=== PATIENT | male | born 1970 | race Caucasian/White ===

== ENCOUNTER 2020-02-11 13:13 | Emergency (ER) | payer OTHER, SELFPAY ==
[2020-02-11 13:22] VITALS: BP 155/83; PULSE 72; RESP 18; TEMP 36.2; O2SAT 98; BMI 31.3
[2020-02-11 14:07] LABS: Bacteria Urine None Seen
[2020-02-11 14:10] LABS: Appearance Urine UA CLEAR; Bilirubin Urine UA NEGATIVE (NEGATIVE); Color Urine UA YELLOW; Glucose Urine UA 2+ g/dL (Negative); Ketones Urine UA 1+ (NEGATIVE); Leukocyte Esterase Urine UA NEGATIVE (NEGATIVE); Nitrite Urine UA NEGATIVE (Negative); Occult Blood Urine UA 3+ (Negative); Protein Urine UA 1+ (Negative); Urobilinogen Urine UA 0.2 E.U./dL (0.2); pH Urine UA 5.5 (4.5-8.0)
[2020-02-11 14:25] LABS: RBC Urine 5-10/HPF (0-5/HPF); Squamous Epithelial Cell Urine 0-1 /HPF (0-5/HPF); WBC Urine 1-5/HPF (0-5/HPF)
[2020-02-11 14:26] LABS: Culture Indicated Urine Cult Not Indicated
[2020-02-11 14:37] LABS: Add Manual Diff / Slide Review NO; Basophils Absolute Auto 0 /uL (0-100); Basophils Percent Auto 0.3 % (0-2); Eosinophils Absolute Auto 0 /uL (0-450); Eosinophils Percent Auto 0.1 % (2-4); Hematocrit 46.3 % (41-53); Hemoglobin 16.7 g/dL (13.5-17.5); Lymphocytes Absolute Auto 2100 /uL (1100-4500); Lymphocytes Percent Auto 19.2 % (25-40); Mean Corpuscular Hemoglobin 33.8 PG (26-34); Mean Corpuscular Volume 93.7 fL (80-100); Monocytes Absolute Auto 700 /uL (0-900); Monocytes Percent Auto 6.1 % (3-14); Neutrophils Absolute Auto 8000 /uL (1500-7000); Neutrophils Percent Auto 74.3 % (50-75); Platelet Count 159 X10^3/uL (150-400); Red Blood Cell Count 4.94 X10^6/uL (4.5-5.9); White Blood Cell Count 10.7 X10^3/uL (4.5-11.0)
[2020-02-11 14:46] LABS: Alanine Aminotransferase 52 IU/L (<50); Albumin 4.6 g/dL (3.5-5.0); Albumin Globulin Ratio 1.4 (1.0-2.8); Alkaline Phosphatase 94 U/L (38-126); Aspartate Aminotransferase 36 IU/L (17-59); Bilirubin Total 1.3 mg/dL (0.2-1.3); Blood Urea Nitrogen 17 mg/dL (9-20); Calcium 9.3 mg/dL (8.4-10.2); Carbon Dioxide 26 mmol/L (22-32); Chloride 103 mmol/L (98-107); Estimated Glomerular Filt Rate > 60.0 mL/min (>60); Globulin 3.4 g/dL (1.7-4.1); Glucose 261 mg/dL (70-100); HEMOLYSIS < 15 (0-50); Lipase 56 U/L (23-300); Potassium 4.1 mmol/L (3.4-5.1); Sodium 139 mmol/L (137-145)
--- NOTE | 2020-02-11 14:46 | DI.CT.S_ITS ---
PROCEDURE: CT KIDNEY URETER BLADDER (KUB) INDICATIONS: right side, RLQ pain with n/v, hx of kidney stone TECHNIQUE: Noncontrast 5 mm thick sections acquired from the diaphragms to the symphysis. 5 mm thick coronal and sagittal reformats were then performed. For radiation dose reduction, the following was used: automated exposure control, adjustment of mA and/or kV according to patient size. COMPARISON: [facility], CT, KIDNEY/ URETER/BLADDER, 06/09/2016, 14:46. FINDINGS: Image quality: Excellent. Lung bases: Lung bases are clear. Heart size is normal. A small hiatal hernia is incidentally noted. Urinary system: Within the distal right ureter, there are 2 tiny stone seen immediately adjacent to 1 another, each measuring approximately 2 mm. There is mild right-sided hydronephrosis and hydroureter. Mild right-sided perinephric fat stranding can be seen. The previously seen distal left ureteral stone has resolved. Within the left kidney, there is a nonobstructing kidney stone seen inferiorly, as on series 2, image 45, measuring 6 mm. Both kidneys are normal in size. Bladder wall thickness is normal; no calcified bladder stones. Other solid organs: Liver is normal in size. Diffuse fatty liver infiltration is noted. Gallbladder wall is not thickened. Pancreas is normal in contours. Spleen is normal in size. No adrenal nodules. Peritoneum and bowel: Unenhanced bowel loops demonstrate normal wall thickness and caliber. No free fluid or air. A normal appendix is incidentally noted. Distal colonic diverticulosis is seen, without findings of active diverticulitis. Nodes and vessels: No retroperitoneal or mesenteric adenopathy by size criteria. Aorta and inferior vena cava are normal in caliber. Abdominal wall: A mild periumbilical hernia is seen, containing fat. Pelvis: No free pelvic fluid. No inguinal adenopathy. Bilateral fat containing inguinal hernias are seen. Prostate calcifications are seen. Bones: No suspicious bony lesions. No vertebral body compression fractures. IMPRESSION: Within the distal right ureter, there are 2 small stone seen immediately adjacent to one another, each measuring approximately 2 mm. There is associated right-sided hydroureter, hydronephrosis, and perinephric fat stranding. 6 mm nonobstructing left-sided kidney stone. Incidental note is made of: Small hiatal hernia Diffuse fatty liver infiltration Small fat containing periumbilical hernia Bilateral fat containing inguinal hernias Normal appendix Dictated by: Shan Larry M.D. on 02/11/2020 at 14:09 Approved by: Shan Larry M.D. on 02/11/2020 at 14:15
[2020-02-11 14:59] VITALS: PULSE 82; O2SAT 100
[2020-02-11 15:00] VITALS: BP 127/83; PULSE 69; O2SAT 99
[2020-02-11] MEDS: SODIUM CHLORIDE 0.9% 1,000 ML 150 ML IV (15:02)
[2020-02-11 15:30] VITALS: BP 116/66; PULSE 73; O2SAT 97
--- NOTE | 2020-02-11 18:31 | ED.MALEGU ---
HPI - Male Genitourinary <ERNST Tinsley - Last Filed: 02/11/20 19:05> General Chief complaint: Urogenital-Male Stated complaint: kidney stones Time Seen by Provider: 02/11/20 14:28 Source: patient Mode of arrival: Ambulatory Limitations: no limitations History of Present Illness HPI Narrative: This is a 49-year-old male, nonsmoker, who has history of kidney stone in the right-sided about 3 years ago presents to ED with significant other with chief complain of sudden onset of right side pain when he woke up this morning at 7:00 a.m.. Patient reports nausea and vomiting after the pain started. Patient denies fever, chills, feeling of bladder fullness, urinary symptoms including urgency, frequency, dysuria, or hematuria. Patient was able to pass stone 3 years ago without surgeries. Patient had noticed some back pain in the right-sided last 2 months but this morning he noticed severe pain on the right side. Patient reports the pain make him wants to move around and pressure to perineum but was unable to have bowel movements. Reports pain is well managed after he received a few medications by [facility] before coming into ED. Patient is from [facility] and had received IM injections of Toradol, Dilaudid 1mg x2 and sublingual Zofran before arriving to ED. Related Data Home Medications Medication Instructions Recorded Confirmed omeprazole 20 mg PO QDAY #0 06/09/16 Previous Rx's Medication Instructions Recorded hydrocodone-acetaminophen [[place]] 1 - 2 tab PO Q6H PRN #20 tab 06/09/16 hydrocodone-acetaminophen [[place]] 1 tab PO Q8H PRN #14 tab 02/11/20 ondansetron 4 mg PO Q8-12H PRN #10 tab 02/11/20 tamsulosin [Flomax] 0.4 mg PO BEDTIME #14 cap 02/11/20 Allergies Allergy/AdvReac Type Severity Reaction Status Date / Time No Known Drug Allergies Allergy Verified 02/11/20 14:07 Review of Systems <ERNST Tinsley - Last Filed: 02/11/20 19:05> Review of Systems Narrative: General: Denies fever, chills, fatigue, malaise, sweats. HEENT: Denies sinus pain, ear pain, sore throat, difficulty swallowing, dizziness. Respiratory: Denies dyspnea, cough, wheezing, hemoptysis, sputum. Cardiovascular: Denies chest pain, palpitations, orthopnea, edema. Gastrointestinal: Denies nausea, vomiting, abdominal pain, diarrhea, constipation, melena. : see HPI Musculoskeletal: See HPI Skin: Denies rash, skin lesions, or other. Neurologic: Denies weakness, headache, numbness, change in speech, confusion, seizures, incoordination. Psychiatric: No concerning psychosocial issues. 12-point review of systems is negative except for those stated above. Patient History <ERNST Tinsley - Last Filed: 02/11/20 19:05> Medical History GERD (gastroesophageal reflux disease) (Acute) Social History Smoking Status: Never smoker Smoking Status: Never smoker Substance Use Type: does not use Exam <ERNST Tinsley - Last Filed: 02/11/20 19:05> Narrative Exam Narrative: GEN: Alert, oriented x 3, well appearing and nourished, and in no acute distress. Head: Normal cephalic, atraumatic. No scalp or temporal tenderness, palpable mass or rash. EYES: Pupils are equal, round, and reactive to light and accommodation. Extraocular muscles are intact bilaterally. There is no subconjunctival hemorrhage, exudate and sclera non-icteric. ENT: Hearing grossly intact. Nose without bleeding, purulent discharge or deviation. Mucous membrane moist, no mucosal lesion. Throat without erythema, tonsillar hypertrophy or exudate. Uvula in midline, airway patent. Neck: Trachea in midline. No JVD, non-tender without lymphadenopathy. No masses or thyroid megaly. Supple, non-tender and no meningeal signs. CARDIAC: Normal regular rate and rhythm without murmurs, gallops, or rubs. No chest wall tenderness. No peripheral edema, cyanosis or pallor. Capillary refill is less than 2 seconds. RESPIRATORY: Lungs are clear to auscultate bilaterally. No cough, wheezes, rales, or rhonchi. No stridor, respiratory distress, increase work of breathing, or accessary muscle used. ABD: Abdomen soft, nontender and non-distended. No guarding or rebound tenderness to palpate. Bowel sounds are normal in all 4 quadrants. There is no palpable masses or organomegaly. EXT: Full painless ROM of all extremities with no loss of sensation, strength, effusion or edema. SKIN: Warm, dry, normal color for patient. No erythema, lesions or rash over visible areas. BACK: Nontender without deformity or crepitance. No flank tenderness. NEUROLOGICAL: Alert and oriented to place, time and person. Sensation and motor function intact bilaterally. No facial droops, dysphasia. PSYCHIATRIC: Good judgement and reason, without hallucinations, abnormal affect or abnormal behaviors during the examination. Initial Vital Signs Initial Vital Signs: Vital Signs Temperature 97.1 F L 02/11/20 13:22 Pulse Rate 72 02/11/20 13:22 Respiratory Rate 18 02/11/20 13:22 Blood Pressure 155/83 H 02/11/20 13:22 Pulse Oximetry 98 02/11/20 13:22 <Estela Martin DO - Last Filed: 02/12/20 07:38> Initial Vital Signs Initial Vital Signs: Vital Signs Temperature 97.1 F L 02/11/20 13:22 Pulse Rate 72 02/11/20 13:22 Respiratory Rate 18 02/11/20 13:22 Blood Pressure 155/83 H 02/11/20 13:22 Pulse Oximetry 98 02/11/20 13:22 Scores <[facility] Last Filed: 02/11/20 19:05> GCS Merlin coma scale eye opening: Spontaneous Warren coma scale verbal response: Orientated Merlin coma scale motor response: Obey commands Warren coma scale total score: 15 Course <Gadiel CruzANGELINA AgostoDignity [facility] Last Filed: 02/11/20 19:05> Orders Ordered: Discontinued Medications Sodium Chloride (Normal Saline 0.9%) 1,000 mls @ 150 mls/hr IV CONT CRISPIN Last Infusion: 02/11/20 16:07 Dose: 0 mls/hr Documented by: Admin: 02/11/20 15:02 Dose: 150 mls/hr Documented by: SHAZIA Vital Signs Vital signs: Vital Signs - 8 hr 02/11/20 13:22 02/11/20 14:59 02/11/20 15:00 Temperature 97.1 F L Pulse Rate 72 82 69 Respiratory Rate 18 Blood Pressure 155/83 H 127/83 Pulse Oximetry 98 100 99 02/11/20 15:30 Temperature Pulse Rate 73 Respiratory Rate Blood Pressure 116/66 Pulse Oximetry 97 <Estela Martin DO - Last Filed: 02/12/20 07:38> Orders Ordered: Discontinued Medications Sodium Chloride (Normal Saline 0.9%) 1,000 mls @ 150 mls/hr IV CONT CRISPIN Last Infusion: 02/11/20 16:07 Dose: 0 mls/hr Documented by: Admin: 02/11/20 15:02 Dose: 150 mls/hr Documented by: SHAZIA Vital Signs Vital signs: Vital Signs - 8 hr 02/11/20 13:22 02/11/20 14:59 02/11/20 15:00 Temperature 97.1 F L Pulse Rate 72 82 69 Respiratory Rate 18 Blood Pressure 155/83 H 127/83 Pulse Oximetry 98 100 99 02/11/20 15:30 Temperature Pulse Rate 73 Respiratory Rate Blood Pressure 116/66 Pulse Oximetry 97 MDM - Male Genitourinary <ERNST Tinsley - Last Filed: 02/11/20 19:05> Differential Diagnosis Differential diagnosis: Likely other (Kidney stone, infection, UTI, hydronephrosis, obstructing stone, appendicitis) Medical Records Attestation: I reviewed the patient's medical records. Lab Data Attestation: I reviewed the patient's lab results. Result diagrams: 02/11/20 14:22 02/11/20 14:22 Labs: Lab Results 02/11/20 02/11/20 02/11/20 Range/Units 14:00 14:22 14:22 WBC 10.7 (4.5-11.0) X10^3/uL RBC 4.94 (4.5-5.9) X10^6/uL Hgb 16.7 (13.5-17.5) g/dL Hct 46.3 (41-53) % MCV 93.7 (80-100) fL MCH 33.8 (26-34) PG MCHC 36.0 (30-36) % RDW 13.0 (11.6-14.8) % Plt Count 159 (150-400) X10^3/uL Neut % (Auto) 74.3 (50-75) % Lymph % (Auto) 19.2 L (25-40) % Oliver % (Auto) 6.1 (3-14) % Eos % (Auto) 0.1 L (2-4) % Baso % (Auto) 0.3 (0-2) % Neut # (Auto) 8000 H (0787-0971) /uL Lymph # (Auto) 2100 (1645-6537) /uL Oliver # (Auto) 700 (0-900) /uL Eos # (Auto) 0 (0-450) /uL Baso # (Auto) 0 (0-100) /uL Sodium 139 (137-145) mmol/L Potassium 4.1 (3.4-5.1) mmol/L Chloride 103 (98-107) mmol/L Carbon Dioxide 26 (22-32) mmol/L BUN 17 (9-20) mg/dL Creatinine 0.81 (0.66-1.25) mg/dL Estimated GFR > 60.0 (>60) mL/min BUN/Creatinine Ratio 21.0 (6-22) Glucose 261 H (70-100) mg/dL Calcium 9.3 (8.4-10.2) mg/dL Total Bilirubin 1.3 (0.2-1.3) mg/dL AST 36 (17-59) IU/L ALT 52 H (<50) IU/L Alkaline Phosphatase 94 (38-126) U/L Total Protein 8.0 (6.3-8.2) g/dL Albumin 4.6 (3.5-5.0) g/dL Globulin 3.4 (1.7-4.1) g/dL Albumin/Globulin Ratio 1.4 (1.0-2.8) Lipase 56 (23-300) U/L Urine Color Yellow Urine Appearance Clear Urine pH 5.5 (4.5-8.0) Ur Specific [place] 1.020 (1.000-1.035) Urine Protein 1+ H (Negative) Urine Glucose (UA) 2+ H (Negative) g/dL Urine Ketones 1+ H (NEGATIVE) Urine Occult Blood 3+ H (Negative) Urine Nitrate Negative (Negative) Urine Bilirubin Negative (NEGATIVE) Urine Urobilinogen 0.2 (0.2) E.U./dL Ur Leukocyte Esterase Negative (NEGATIVE) Urine RBC 5-10/hpf H (0-5/HPF) Urine WBC 1-5/hpf (0-5/HPF) Ur Squamous Epith Cells 0-1 /hpf (0-5/HPF) Urine Bacteria None seen (None) Urine Yeast 5-10/hpf H (None) Ur Culture Indicated? Cult not indicated Imaging Data CT-KUB: Radiologist's Impression: [address] [address] [address] Scan Report Signed Patient: Torres FerrariMR#: [id number] : 1970Acct:[id number] Age/Sex: 49 / MDate of Service: 02/11/20 Loc: ED Accession Number: [id number] Procedure: CT kidney ureter bladder (KUB) Ordering Provider: Gadiel Hart PROCEDURE: CT KIDNEY URETER BLADDER (KUB) INDICATIONS: right side, RLQ pain with n/v, hx of kidney stone TECHNIQUE: Noncontrast 5 mm thick sections acquired from the diaphragms to the symphysis. 5 mm thick coronal and sagittal reformats were then performed. For radiation dose reduction, the following was used: automated exposure control, adjustment of mA and/or kV according to patient size. COMPARISON: [facility], CT, KIDNEY/ URETER/BLADDER, 06/09/2016, 14:46. FINDINGS: Image quality: Excellent. Lung bases: Lung bases are clear. Heart size is normal. A small hiatal hernia is incidentally noted. Urinary system: Within the distal right ureter, there are 2 tiny stone seen immediately adjacent to 1 another, each measuring approximately 2 mm. There is mild right-sided hydronephrosis and hydroureter. Mild right-sided perinephric fat stranding can be seen. The previously seen distal left ureteral stone has resolved. Within the left kidney, there is a nonobstructing kidney stone seen inferiorly, as on series 2, image 45, measuring 6 mm. Both kidneys are normal in size. Bladder wall thickness is normal; no calcified bladder stones. Other solid organs: Liver is normal in size. Diffuse fatty liver infiltration is noted. Gallbladder wall is not thickened. Pancreas is normal in contours. Spleen is normal in size. No adrenal nodules. Peritoneum and bowel: Unenhanced bowel loops demonstrate normal wall thickness and caliber. No free fluid or air. A normal appendix is incidentally noted. Distal colonic diverticulosis is seen, without findings of active diverticulitis. Nodes and vessels: No retroperitoneal or mesenteric adenopathy by size criteria. Aorta and inferior vena cava are normal in caliber. Abdominal wall: A mild periumbilical hernia is seen, containing fat. Pelvis: No free pelvic fluid. No inguinal adenopathy. Bilateral fat containing inguinal hernias are seen. Prostate calcifications are seen. Bones: No suspicious bony lesions. No vertebral body compression fractures. IMPRESSION: Within the distal right ureter, there are 2 small stone seen immediately adjacent to one another, each measuring approximately 2 mm. There is associated right-sided hydroureter, hydronephrosis, and perinephric fat stranding. 6 mm nonobstructing left-sided kidney stone. Incidental note is made of: Small hiatal hernia Diffuse fatty liver infiltration Small fat containing periumbilical hernia Bilateral fat containing inguinal hernias Normal appendix Dictated by: Shan Larry M.D. on 02/11/2020 at 14:09 Approved by: Shan Larry M.D. on 02/11/2020 at 14:15 [facility] Narrative Medical decision making narrative: This is a 49-year-old male who has history of kidney stone in the right side presents to ED with acute onset of right side and right lower quadrant pain with nausea and vomiting when he woke up this morning at 7:00 a.m.. Patient's states feels like kidney stone when he had it about 3 years ago. Patient denies fever, chills, urinary distension, or urinary symptoms. Consider not rescanning patient patient was able to pass stone without surgery 3 years ago but given patient [place] a living [place] and not having urologist currently, CT of KUB was ordered and obtained to verify with the patient has kidney stone versus appendicitis and the size of stone. No leukocytosis. Normal kidney function test. Urine test was negative for infection but showed 3+ blood, protein, glucose. Chemistry tests showed elevated glucose of 261 with very mildly elevated ALT of 52. CT KUB showed 2 small 2 mm stones in distal right ureter with associated right-sided hydroureter and hydronephrosis and Carlota phrenic fat stranding. There is another nonobstructing left-sided kidney stone measured in 6 mm and patient is asymptomatic on left flank or abdomen. Appendix was normal. Incidental findings of small hiatal hernia, that fused fatty liver infiltration, fat containing periumbilical and bilateral inguinal hernia. Patient was comfortable in ED and not requiring any additional medications. Patient was discharged to home with [place], Zofran as needed and Flomax daily for next couple of weeks. Advised to follow up with primary care physician and urologist. Strict Return precautions discussed including signs and symptoms for infection but on limited to with patient and he and spouse verbalized understanding in agreement with treatment plan. <Estela Martin, DO - Last Filed: 02/12/20 07:38> Lab Data Labs: Lab Results 02/11/20 02/11/20 02/11/20 Range/Units 14:00 14:22 14:22 WBC 10.7 (4.5-11.0) X10^3/uL RBC 4.94 (4.5-5.9) X10^6/uL Hgb 16.7 (13.5-17.5) g/dL Hct 46.3 (41-53) % MCV 93.7 (80-100) fL MCH 33.8 (26-34) PG MCHC 36.0 (30-36) % RDW 13.0 (11.6-14.8) % Plt Count 159 (150-400) X10^3/uL Neut % (Auto) 74.3 (50-75) % Lymph % (Auto) 19.2 L (25-40) % Oliver % (Auto) 6.1 (3-14) % Eos % (Auto) 0.1 L (2-4) % Baso % (Auto) 0.3 (0-2) % Neut # (Auto) 8000 H (0773-6095) /uL Lymph # (Auto) 2100 (4332-5647) /uL Oliver # (Auto) 700 (0-900) /uL Eos # (Auto) 0 (0-450) /uL Baso # (Auto) 0 (0-100) /uL Sodium 139 (137-145) mmol/L Potassium 4.1 (3.4-5.1) mmol/L Chloride 103 (98-107) mmol/L Carbon Dioxide 26 (22-32) mmol/L BUN 17 (9-20) mg/dL Creatinine 0.81 (0.66-1.25) mg/dL Estimated GFR > 60.0 (>60) mL/min BUN/Creatinine Ratio 21.0 (6-22) Glucose 261 H (70-100) mg/dL Calcium 9.3 (8.4-10.2) mg/dL Total Bilirubin 1.3 (0.2-1.3) mg/dL AST 36 (17-59) IU/L ALT 52 H (<50) IU/L Alkaline Phosphatase 94 (38-126) U/L Total Protein 8.0 (6.3-8.2) g/dL Albumin 4.6 (3.5-5.0) g/dL Globulin 3.4 (1.7-4.1) g/dL Albumin/Globulin Ratio 1.4 (1.0-2.8) Lipase 56 (23-300) U/L Urine Color Yellow Urine Appearance Clear Urine pH 5.5 (4.5-8.0) Ur Specific [place] 1.020 (1.000-1.035) Urine Protein 1+ H (Negative) Urine Glucose (UA) 2+ H (Negative) g/dL Urine Ketones 1+ H (NEGATIVE) Urine Occult Blood 3+ H (Negative) Urine Nitrate Negative (Negative) Urine Bilirubin Negative (NEGATIVE) Urine Urobilinogen 0.2 (0.2) E.U./dL Ur Leukocyte Esterase Negative (NEGATIVE) Urine RBC 5-10/hpf H (0-5/HPF) Urine WBC 1-5/hpf (0-5/HPF) Ur Squamous Epith Cells 0-1 /hpf (0-5/HPF) Urine Bacteria None seen (None) Urine Yeast 5-10/hpf H (None) Ur Culture Indicated? Cult not indicated Discharge Plan Departure Patient Disposition: Home Clinical Impression: Renal colic, Calculus, ureteral, Calculus, renal Discharge Date/Time: 02/11/20 16:00 Instructions: DI for Kidney Stones Activity Restrictions/Additional Instructions: You have been diagnosed with [right-sided abdominal pain likely from 2 small 2 mm ureter stone in right side and 6 mm nonobstructing kidney stone in left side. Kidney function, urine test, blood count are unremarkable.]. What to do: *Take your medications as directed. Please take [id number] ibuprofen 600 mg up to 3 times a day as needed for pain with food to decrease GI irritations. Take [place] 1-2 tabs as needed for severe pain. This is narcotic pain and it can cause drowsiness and constipation. Please do not drive, drink alcohol, or operate heavy equipments. You can take over the counter stool softener to prevent constipation and increase water and fiber in her diet. Please start taking Flomax and nights to help passing stones. Zofran as needed for nausea and vomiting. These medications has been transmitted to [facility]. *Follow up with your primary care provider in 2-3 days, call for an appointment. Please follow-up with urologist Dr. Iverson. Let them know you were seen in the ED and that we asked you to be seen in follow up. *Return to ED if you have any new, worsening, or concerning symptoms, such as [worsening pain, unable to tolerate fluids, fever, chills, chest pain, breathing difficulty, or any acute concerns]. Prescriptions: New hydrocodone-acetaminophen [[place]] 5-325 mg tablet 1 tab PO Q8H PRN (Reason: pain) Qty: 14 RF: 0 ondansetron 4 mg tablet,disintegrating 4 mg PO Q8-12H PRN (Reason: nausea and vomiting) Qty: 10 RF: 0 tamsulosin [Flomax] 0.4 mg capsule 0.4 mg PO BEDTIME Qty: 14 RF: 0 No Action omeprazole 20 MG capsule,delayed release(DR/EC) 20 mg PO QDAY Qty: 0 RF: 0 hydrocodone-acetaminophen [[place]] 5 MG/325 MG tablet 1 - 2 tab PO Q6H PRNQty: 20 RF: 0 Referrals: Brigida Iverson MD [Physician] - Cheikh Roman MD [Primary Care Provider] - <Estela Martin DO - Last Filed: 02/12/20 07:38> [facility] ED Attending Rosendoature Attestation: I was immediately available in the department for consultation. Documentation has been reviewed. I agree with assessment and plan.
== END 2020-02-11 16:00 | disposition home or self-care (01) ==
PROVIDERS: Emergency Medicine; Emergency Provider Nurse Practitioner Family; PCP Family Medicine
DX: N23 Unspecified renal colic (principal); N20.1 Calculus of ureter; N20.0 Calculus of kidney
CPT/HCPCS: 36415; 74176; 80053; 81001; 83690; 85025; 96360; 99284

== ENCOUNTER → 2020-05-21 10:34 | Outpatient (CLI) | payer OTHER, SELFPAY ==
--- NOTE | 2020-05-21 10:36 | DI.CT.S_ITS ---
PROCEDURE: CT KIDNEY URETER BLADDER (KUB) INDICATIONS: kidney stones TECHNIQUE: Noncontrast 5 mm thick sections acquired from the diaphragms to the symphysis. 5 mm thick coronal and sagittal reformats were then performed. For radiation dose reduction, the following was used: automated exposure control, adjustment of mA and/or kV according to patient size. COMPARISON: [facility], CT, CT KIDNEY URETER BLADDER (KUB), 02/11/2020, 14:51. FINDINGS: Image quality: Excellent. Lung bases: Lung bases are clear. Heart size is normal. Urinary system: Right kidney: No stones or hydronephrosis. Right ureter: Unremarkable. Left kidney: Nonobstructing 6 x 3 mm lower pole stone. No hydronephrosis. Left ureter: Unremarkable. Bladder: Mild bladder wall thickening. No bladder stones. Enlarged prostate. Other solid organs: Liver is normal in size. Interval resolution of hepatic steatosis. Gallbladder is unremarkable . Pancreas is normal in contours. Spleen is normal in size. No adrenal nodules. Peritoneum and bowel: Unenhanced bowel loops demonstrate normal wall thickness and caliber. No free fluid or air. Nodes and vessels: No retroperitoneal or mesenteric adenopathy by size criteria. Aorta and inferior vena cava are normal in caliber. Abdominal wall: No ventral hernias. Pelvis: No free pelvic fluid. Bilateral fat containing inguinal hernias. No inguinal adenopathy. Bones: No suspicious bony lesions. No vertebral body compression fractures. IMPRESSION: 1. 6 x 3 mm nonobstructing left renal stone. 2. No ureteral stones. No hydronephrosis. 3. Prostate enlargement with mild bladder wall thickening. 4. Bilateral fat containing inguinal hernias. 5. Interval resolution of hepatic steatosis. Dictated by: Medhat Carrasco M.D. on 05/21/2020 at 10:56 Approved by: Medhat Carrasco M.D. on 05/21/2020 at 11:00
== END ==
PROVIDERS: PCP Family Medicine; Referring Provider Specialist; Visit Provider Specialist
DX: N20.0 Calculus of kidney (principal); N40.0 Benign prostatic hyperplasia without lower urinary tract symptoms; K40.20 Bilateral inguinal hernia, without obstruction or gangrene, not specified as recurrent
CPT/HCPCS: 74176

== ENCOUNTER → 2020-06-03 09:55 | Outpatient (CLI) | payer OTHER, SELFPAY ==
[2020-06-03 10:34] LABS: Calcium 9.3 mg/dL (8.4-10.2); Uric Acid 7.1 mg/dL (3.5-8.5)
[2020-06-03 11:05] LABS: Prostate Specific Antigen 4.57 ng/mL (0.10-4.00)
[2020-06-04 07:36] LABS: Parathyroid Hormone Int 38 pg/mL (15-65)
== END ==
PROVIDERS: PCP Family Medicine; Referring Provider Specialist; Visit Provider Specialist
DX: R97.20 Elevated prostate specific antigen [PSA] (principal); N20.0 Calculus of kidney; Z87.442 Personal history of urinary calculi
CPT/HCPCS: 36415; 81002; 82310; 83970; 84153; 84550

== ENCOUNTER → 2020-08-15 12:03 | Outpatient (CLI) | payer OTHER, SELFPAY ==
--- NOTE | 2020-08-15 12:05 | DI.RAD.S_ITS ---
PROCEDURE: XR KUB INDICATIONS: LF nephrolithiasis TECHNIQUE: One view of the abdomen acquired. COMPARISON: , CT, CT KIDNEY URETER BLADDER (KUB), 05/21/2020, 10:35. FINDINGS: Surgical changes and devices: None. Bowel: Bowel gas pattern is normal. Soft tissues: There is a 6 mm calcification projecting over the left renal shadow compatible with previously described nonobstructing left-sided nephroliths. No suspicious abdominal calcifications. Visualized solid organ contours appear normal in size. Bones: No suspicious bony lesions. Degenerative changes of the lower lumbar spine and bilateral hips. Degenerative changes are more severe on the left. Stable nonaggressive sclerotic focus superior to the left acetabular roof. IMPRESSION: 1. Stable 6 mm soft tissue calcification overlying the left renal shadow compatible with previously described nonobstructing nephrolith. 2. Abdomen without acute radiographic abnormalities. Dictated by: Trung Mendez M.D. on 08/15/2020 at 16:43 Approved by: Trung Mendez M.D. on 08/15/2020 at 16:46
[2020-08-15 13:58] LABS: Prostate Specific Antigen 0.711 ng/mL (0.10-4.00)
== END ==
PROVIDERS: PCP Family Medicine; Referring Provider Specialist; Visit Provider Specialist
DX: N20.0 Calculus of kidney (principal); N40.0 Benign prostatic hyperplasia without lower urinary tract symptoms
CPT/HCPCS: 36415; 74018; 84153

== ENCOUNTER 2020-09-27 06:23 | Day surgery (SDC) | payer OTHER, SELFPAY ==
[2020-09-27] VITALS (12 sets, daily range): BP systolic 105–127; BP diastolic 67–81; PULSE 60–76; RESP 10–18; TEMP 36.5–36.9; O2SAT 96–98; BMI 26.2
--- NOTE | 2020-09-27 | DI.RAD.S_ITS ---
PROCEDURE: XR KUB INDICATIONS: Left renal calculus TECHNIQUE: One view of the abdomen acquired. COMPARISON: [facility], CT, CT KIDNEY URETER BLADDER (KUB), 05/21/2020, 10:35. [facility], CR, XR KUB, 08/15/2020, 12:08. FINDINGS: Surgical changes and devices: None. Bowel: Bowel gas pattern is normal. Soft tissues: There is a renal stone measuring up to approximately 4-5 mm projecting over the inferior pole of the left kidney which appears unchanged compared to the prior study. No new radiopaque urinary stones identified. Bones: No suspicious bony lesions. IMPRESSION: 1. Left renal stone appears unchanged in position. Dictated by: Noman Laboy M.D. on 09/27/2020 at 7:51 Approved by: Noman Laboy M.D. on 09/27/2020 at 7:53
[2020-09-27 07:13] LABS: COVID19 -Nasal RAPID Negative (Negative)
--- NOTE | 2020-09-27 07:23 | PM.PREOP ---
Pre-operative Note Interval Note History & Physical reviewed/Exam performed by Physician: Yes Changes to H&P: No
--- NOTE | 2020-09-27 07:24 | P.HP_ITS ---
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 He is now on hydrochlorothiazide 12.5 mg q.day based on previous metabolic risk factor testing. He denies interval renal colic. KUB 09/27/2020, demonstrates unchanged size and position of a left interpolar renal calculus. Patient History Medical History Diabetes Elevated PSA GERD (gastroesophageal reflux disease) History of nephrolithiasis Left nephrolithiasis Surgical History H/O circumcision Family & Social History Family History Father Diabetes mellitus Kidney stone Social History: household members spouse Tobacco & Substance use: Smoking Status Never smoker alcohol intake former Substance Use Type does not use Meds Home Medications and Allergies Home Medications Medication Instructions Recorded Confirmed Type hydrocodone-acetaminophen [[place]] 1 - 2 tab PO Q6H PRN #20 tab 06/09/16 09/27/20 Rx omeprazole 20 mg PO QDAY #0 06/09/16 09/27/20 History hydrocodone-acetaminophen [[place]] 1 tab PO Q8H PRN #14 tab 02/11/20 09/27/20 Rx metformin 500 mg tablet 500 mg PO DAILY 04/01/20 09/27/20 History hydrochlorothiazide 12.5 mg tablet 12.5 mg PO DAILY #90 tab 08/15/20 09/27/20 Rx Allergies Allergy/AdvReac Type Severity Reaction Status Date / Time No Known Drug Allergies Allergy Verified 08/15/20 11:03 Review of Systems Review of Systems ROS: Yes All systems reviewed with the patient and are negative except as otherwise documented Exam Narrative Exam Narrative: He is a well-developed well-nourished middle-aged male in no acute distress. Head/neck-sclera clear an pupils are equal round bilaterally. Chest clear, equal, nonlabored expansion bilaterally. Heart-regular rhythm and rate. No abnormal heart tone appreciated. Objective Labs Labs: Laboratory Results - last 24 hr 09/27/20 06:35 SARS-CoV-2 (PCR) Negative Assessment & Plan Assessment and plan (1) Left nephrolithiasis: Status: Acute (2) History of nephrolithiasis: Status: Acute Assessment & Plan narrative: Assessment: 1. Left nephrolithiasis. 2. History of recurrent nephrolithiasis Plan: 1. Proceed with left extracorporeal shockwave lithotripsy. Common side effects, possible complications, perioperative limitations/restrictions and reasonable expectations outcomes and recovery were explained. He wishes to proceed.
[2020-09-27] MEDS: LACTATED RINGERS 500 ML 25 ML IV (07:38)
--- NOTE | 2020-09-27 07:57 | SUR.OPER ---
Supine on ESWL table, head on pillow, arms on gel pads at sides, legs uncrossed, gel pad under heels. Warm blankets placed.
--- NOTE | 2020-09-27 08:29 | PM.OP.1 ---
Operative Date/Time/Diagnoses Date of procedure: 09/27/20 Time of procedure: 08:29 Pre-op diagnosis: 6 x 7 mm left Post-op diagnosis: same Procedure & Clinicians Procedure: Left extracorporeal shockwave lithotripsy Same procedure as scheduled: Yes Indications: 1. Left renal calculus 2. History recurrent calcium nephrolithiasis. Surgeon: Brigida Iverson Click Yes if Unassisted: Yes Anesthesia Type: General Operative Notes Findings: Unchanged position of index calculus in the interpolar left kidney. Closure Type: not applicable Specimen(s): none sent Estimated Blood Loss (mL): 0 Blood products transfused: none Tourniquet time (min): 0 Complications: none Post-operative Condition: stable Disposition: PACU Plan for aftercare: Discharge home
[2020-09-27] MEDS: FUROSEMIDE 20 MG/2 ML VIAL IV (08:46)
[2020-09-27] MEDS: LACTATED RINGERS 1,000 ML 42 ML IV (09:01)
--- NOTE | 2020-09-27 10:08 | SUR.PHASEII ---
Stone fragments sent to lab after patient voided.
[2020-10-04 13:36] LABS: Ca oxalate monohydr 100 % (.); Size <1 mm (.)
== END 2020-09-27 10:00 | disposition home or self-care (01) ==
PROVIDERS: PCP Family Medicine; Referring Provider Family Medicine; Visit Provider Specialist
PROC: (CPT 50590; principal; 2020-09-27 07:45)
DX: N20.0 Calculus of kidney (principal); Z87.442 Personal history of urinary calculi; E11.9 Type 2 diabetes mellitus without complications; K21.9 Gastro-esophageal reflux disease without esophagitis; Z79.84 Long term (current) use of oral hypoglycemic drugs
CPT/HCPCS: 50590; 74018; 82365; 87635; J1100; J1885; J1940; J2250; J2405; J2704; J3010

== ENCOUNTER → 2021-01-29 10:42 | Outpatient (CLI) | payer OTHER, SELFPAY ==
[2021-01-29 20:16] LABS: Add Manual Diff / Slide Review NO; Basophils Absolute Auto 0 /uL (0-100); Basophils Percent Auto 0.6 % (0-2); Eosinophils Absolute Auto 100 /uL (0-450); Eosinophils Percent Auto 1.1 % (2-4); Hematocrit 46.9 % (41-53); Hemoglobin 15.8 g/dL (13.5-17.5); Lymphocytes Absolute Auto 3000 /uL (1100-4500); Lymphocytes Percent Auto 55.6 % (25-40); Mean Corpuscular HGB Conc 33.7 % (30-36); Mean Corpuscular Hemoglobin 33.2 PG (26-34); Mean Corpuscular Volume 98.5 fL (80-100); Monocytes Absolute Auto 500 /uL (0-900); Monocytes Percent Auto 8.4 % (3-14); Neutrophils Absolute Auto 1900 /uL (1500-7000); Neutrophils Percent Auto 34.3 % (50-75); Platelet Count 175 X10^3/uL (150-400); Red Blood Cell Count 4.76 X10^6/uL (4.5-5.9); Red Cell Distribution Width 13.5 % (11.6-14.8); White Blood Cell Count 5.5 X10^3/uL (4.5-11.0)
[2021-01-29 20:28] LABS: Alanine Aminotransferase 34 IU/L (<50); Albumin 4.4 g/dL (3.5-5.0); Albumin Globulin Ratio 1.6 (1.0-2.8); Alkaline Phosphatase 56 U/L (38-126); Aspartate Aminotransferase 40 IU/L (17-59); BUN Creatinine Ratio 26.8 (6-22); Bilirubin Total 1.1 mg/dL (0.2-1.3); Blood Urea Nitrogen 19 mg/dL (9-20); Calcium 9.3 mg/dL (8.4-10.2); Carbon Dioxide 30 mmol/L (22-32); Chloride 106 mmol/L (98-107); Cholesterol 249 mg/dL (140-199); Estimated Glomerular Filt Rate > 60.0 mL/min (>60); Globulin 2.7 g/dL (1.7-4.1); Glucose 118 mg/dL (70-100); HDL Cholesterol 60 mg/dL (40-60); HEMOLYSIS < 15 (0-50); LDL Cholesterol Calculated 167 mg/dL (<100); Sodium 141 mmol/L (137-145); Total Protein 7.1 g/dL (6.3-8.2); Triglycerides 109 mg/dL (35-150)
[2021-01-29 20:48] LABS: Hemoglobin A1C% w Est Avg Glu 5.3 % (4.0-6.0)
[2021-01-29 20:56] LABS: Prostate Specific Antigen Scrn 0.769 ng/mL (0.1-4.0)
== END ==
PROVIDERS: PCP Family Medicine; Visit Provider Physician Assistant
DX: E78.2 Mixed hyperlipidemia (principal); E11.9 Type 2 diabetes mellitus without complications; R97.20 Elevated prostate specific antigen [PSA]; R00.1 Bradycardia, unspecified
CPT/HCPCS: 80053; 80061; 83036; 84443; 85025; G0103

== ENCOUNTER → 2021-04-15 13:59 | Outpatient (CLI) | payer OTHER, SELFPAY ==
[2021-04-15 14:54] LABS: COVID19 -Nasal RAPID Negative (Negative)
--- NOTE | 2021-04-15 18:35 | DI.NM.S_ITS ---
DATE OF SERVICE: PROCEDURE: Exercise perfusion study. DATE OF STUDY: April 15, 2021 INDICATIONS: Chest pain. CARDIAC STRESS: The patient underwent exercise stress test under the supervision of an attending staff. The patient walked on Sheng protocol for 15 minutes, achieved 128 percent of target heart rate, 14.8 METs of workload and functional aerobic impairment -36 percent. Baseline blood pressure 120/78 mmHg. Peak blood pressure 192/90 mmHg. No anginal symptoms. [place] fatigue at peak exercise. Baseline EKG revealed sinus rhythm with slight less than in 0.[address] flattening in the inferolateral leads with T-wave inversion. During peak exercise, there was artifact seen as well as worsening ST depression in inferolateral leads. In lead V4 to V6, there was up to [address] depression and T-wave inversion. In the immediate recovery, there was oriental orthodox to the baseline of those ST changes. No significant arrhythmias seen. CONCLUSION: The patient has baseline ST-T abnormalities, which got worse during exercise. The test is inconclusive for ischemia evaluation. However, patient has excellent exercise tolerance. He walked on Sheng protocol for 15 minutes. HUANG -36 percent. Normal hemodynamic response. No anginal symptoms or significant arrhythmias. Overall low-risk exercise stress test. Correlate clinically and if pretest probability for ischemia is high, repeat exercise stress test with imaging modality like exercise stress echo. Torres Ferrari - JASON/oriana/rohit doc#: [id number]/job#: [id number] dd: 04/15/2021 17:27:00 dt: 04/15/2021 18:10:00 DICTATING /COPIES TO: Duncan Lam MD COPIES MNE: ZHAO;
== END ==
PROVIDERS: PCP Family Medicine; Referring Provider Internal Medicine Cardiovascular Disease; Visit Provider Internal Medicine Cardiovascular Disease
DX: I07.9 Rheumatic tricuspid valve disease, unspecified (principal); R00.1 Bradycardia, unspecified; R07.9 Chest pain, unspecified; Z20.822 Contact with and (suspected) exposure to COVID-19
CPT/HCPCS: 87635; 93017